=== PATIENT | male | born 1945 | race Caucasian/White ===

== ENCOUNTER 2018-01-18 18:25 | Emergency (ER) | payer MEDICARE ==
[2018-01-18] MEDS ORDERED: TYLENOL 325 MG PO STA (19:17)
[2018-01-18] MEDS ORDERED: TYLENOL 325 MG ONE (19:22)
--- NOTE | 2018-01-18 19:22 | ERPHSYRPT ---
- History of Present Illness Time Seen by Provider: 01/18/18 19:07 Source: patient Exam Limitations: no limitations Patient Subjective Stated Complaint: Painful urination Triage Nursing Assessment: Patient ambulates in ER. Patient complains of burning when urinating since yesterday. Patient denies urgency or frequency. Patient denies back/ abdominal pain. Urine noted to be cloudy with sediment. Patient states he only has pain 7/10 when urinating. Physician History: 72 y/o male with history of DM Type 2 comes to the ER with complaints of burning with urination for the past 2 days. Pt arrives with a fever of 101 and tachycardic at 103. Pt did have an episode of chills last night. Pt has been having blood glucose in the 100-120 range. Pt denies any abdominal pain, back pain, nausea, vomiting, hematuria or polyuria. Timing/Duration: yesterday Activites at Onset: none Quality: burning Onset Location: urethral Pain Radiation: none Severity of Pain-Max: none Severity of Pain-Current: none Modifying Factors: Improves With: nothing Associated Symptoms: fever, chills, dysuria Prior abdominal problems: none Allergies/Adverse Reactions: adhesive Allergy (Verified 01/18/18 18:51) Home Medications: Alprazolam 0.5 mg [xanAX 0.5 MG] HS 11/02/11 [History] Aspirin EC 81 mg [Ecotrin 81 mg] DAILY 11/02/11 [History] Multivitamin DAILY 11/02/11 [History] Sertraline HCl [Zoloft] DAILY 11/02/11 [History] Hx Tetanus, Diphtheria Vaccination/Date Given: Yes Hx Influenza Vaccination/Date Given: Yes Hx Pneumococcal Vaccination/Date Given: Yes Immunizations Up to Date: Yes - Past Medical History Pertinent Past Medical History: Yes ENT History: No Pertinent History Cardiac History: No Pertinent History Respiratory History: No Pertinent History Endocrine Medical History: No Pertinent History Musculoskeletal History: No Pertinent History GI Medical History: No Pertinent History History: No Pertinent History Psycho-Social History: Anxiety, Depression Male Reproductive Disorders: No Pertinent History Other Medical History: KIDNEY STONE - Past Surgical History Past Surgical History: Yes Neuro Surgical History: No Pertinent History Cardiac: No Pertinent History Respiratory: No Pertinent History Gastrointestinal: No Pertinent History Genitourinary: Other Musculoskeletal: No Pertinent History Male Surgical History: No Pertinent History Other Surgical History: CYSTOSCOPY FOR KIDNEY STONE - Social History Smoking Status: Never smoker Exposure to second hand smoke: No Drug Use: none Patient Lives Alone: No - Review of Systems Constitutional: Fever, Chills Eyes: No Symptoms Ears, Nose, & Throat: No Symptoms Respiratory: No Cough, No Dyspnea Cardiac: No Chest Pain, No Edema, No Syncope Abdominal/Gastrointestinal: No Abdominal Pain, No Nausea, No Vomiting, No Diarrhea Genitourinary Symptoms: Dysuria, No Frequency, No Hematuria, No Hesitancy, No Incontinence, No Urgency, No Urinary Retention, No Flank Pain, No Testicle Pain Musculoskeletal: No Back Pain, No Neck Pain Skin: No Rash Neurological: No Dizziness, No Focal Weakness, No Sensory Changes Psychological: No Symptoms Endocrine: No Symptoms All Other Systems: Reviewed and Negative - Nursing Vital Signs Nursing Vital Signs: Initial Vital Signs Temperature 101.2 F 01/18/18 18:41 Pulse Rate 100 H 01/18/18 18:41 Respiratory Rate 18 01/18/18 18:41 Blood Pressure 145/72 01/18/18 18:41 O2 Sat by Pulse Oximetry 94 L 01/18/18 18:41 Pain Scale Pain Intensity 7 - Physical Exam General Appearance: no apparent distress, alert Eye Exam: PERRL/EOMI Ears, Nose, Throat Exam: pharynx normal, moist mucous membranes Neck Exam: normal inspection, supple Respiratory Exam: normal breath sounds, lungs clear Cardiovascular Exam: regular rate/rhythm, tachycardia, No edema Gastrointestinal/Abdomen Exam: soft, No tenderness Back Exam: normal inspection, No CVA tenderness Extremity Exam: normal inspection, normal range of motion, No pedal edema Neurologic Exam: alert, oriented x 3, cooperative, sensation nml, No motor deficits Skin Exam: normal color, warm, dry, No rash SpO2: 94 Oxygen Delivery: Room Air - Course Nursing assessment & vital signs reviewed: Yes Ordered Tests: Active Orders 24 hr Category Date Time Status IV Insertion STAT Care 01/18/18 19:17 Active BLOOD CULTURE Stat Lab 01/18/18 20:02 Received CBC W DIFF Stat Lab 01/18/18 20:02 Completed CMP Stat Lab 01/18/18 20:02 Completed CULTURE,URINE Stat Lab 01/18/18 20:02 Received Lactic Acid Stat Lab 01/18/18 19:57 Completed UA W/ MICROSCOPIC Stat Lab 01/18/18 20:02 Completed Medication Summary Generic Name Dose Route Start Last Admin Trade Name Maurizio PRN Reason Stop Dose Admin Ceftriaxone Sodium/Dextrose 1 g in 50 mls @ 100 mls/hr 01/18/18 20:35 20:41 Rocephin 1 Gm-D5w 50 Ml Bag IV 01/18/18 21:04 100 mls/hr STAT STA Administration Discontinued Medications Generic Name Dose Route Start Last Admin Trade Name Maurizio PRN Reason Stop Dose Admin Acetaminophen 975 mg 01/18/18 19:17 01/18/18 19:22 Tylenol 325 Mg PO 01/18/18 19:18 975 mg STAT STA Administration Acetaminophen Confirm 01/18/18 19:22 Tylenol 325 Mg Administered 01/18/18 19:23 Dose 975 mg .ROUTE .STK-MED ONE Ceftriaxone Sodium/Dextrose Confirm 01/18/18 20:38 Rocephin 1 Gm-D5w 50 Ml Bag Administered 01/18/18 20:39 Dose 1 g in 50 mls @ ud IV .STK-MED ONE Lab/Rad Data: Laboratory Result Diagrams 01/18/18 20:02 01/18/18 20:02 Laboratory Results 01/18/18 01/18/18 01/18/18 Range/Units 20:02 20:02 20:02 WBC 14.5 H (4.0-10.5) K/mm3 RBC 4.59 (4.1-5.6) M/mm3 Hgb 14.7 (12.5-18.0) gm/dl Hct 43.9 (42-50) % MCV 95.6 (78-100) fl MCH 32.0 (26-32) pg MCHC 33.5 (32-36) g/dl RDW 12.8 (11.5-14.0) % Plt Count 237 (150-450) K/mm3 MPV 8.6 (6-9.5) fl Gran % 85.4 H (36.0-66.0) % Eos # (Auto) 0.25 (0-0.5) Absolute Lymphs (auto) 1.10 (1.0-4.6) Absolute Monos (auto) 0.75 (0.0-1.3) Lymphocytes % 7.6 L (24.0-44.0) % Monocytes % 5.2 (0.0-12.0) % Eosinophils % 1.7 (0.00-5.0) % Basophils % 0.1 (0.0-0.4) % Absolute Granulocytes 12.40 H (1.4-6.9) Basophils # 0.01 (0-0.4) Sodium 140 (137-145) mmol/L Potassium 4.7 (3.5-5.1) mmol/L Chloride 102 (98-107) mmol/L Carbon Dioxide 28 (22-30) mmol/L Anion Gap 15.8 H (5-15) MEQ/L BUN 24 H (9-20) mg/dL Creatinine 1.04 (0.66-1.25) mg/dL Estimated GFR > 60.0 ML/MIN Glucose 92 (74-106) mg/dL Lactic Acid (0.4-2.0) Calcium 10.1 (8.4-10.2) mg/dL Total Bilirubin 0.60 (0.2-1.3) mg/dL AST 19 (17-59) U/L ALT 19 (0-50) U/L Alkaline Phosphatase 75 (38-126) U/L Serum Total Protein 7.4 (6.3-8.2) g/dL Albumin 4.6 (3.5-5.0) g/dL Ur Collection Type VOID Urine Color YELLOW (YELLOW) Urine Appearance CLOUDY (CLEAR) Urine pH 5.0 (5-6) Ur Specific [place] 1.025 (1.005-1.025) Urine Protein TRACE (Negative) Urine Ketones NEGATIVE (NEGATIVE) Urine Blood 250 (0-5) Josafat/ul Urine Nitrite POSITIVE (NEGATIVE) Urine Bilirubin NEGATIVE (NEGATIVE) Urine Urobilinogen NORMAL (0-1) mg/dL Ur Leukocyte Esterase 2+ (NEGATIVE) Urine Microscopic RBC 5-10 (0-2) /HPF Urine Microscopic WBC 50-100 (0-5) /HPF Ur Epithelial Cells MODERATE (FEW) /HPF Urine Bacteria MANY (NEGATIVE) /HPF Urine Mucus MODERATE (NEGATIVE) /HPF Urine Culture Reflexed YES (NO) Urine Glucose NEGATIVE (NEGATIVE) mg/dL Specimen Received 01/18/18 1845 01/18/18 Range/Units 19:57 WBC (4.0-10.5) K/mm3 RBC (4.1-5.6) M/mm3 Hgb (12.5-18.0) gm/dl Hct (42-50) % MCV (78-100) fl MCH (26-32) pg MCHC (32-36) g/dl RDW (11.5-14.0) % Plt Count (150-450) K/mm3 MPV (6-9.5) fl Gran % (36.0-66.0) % Eos # (Auto) (0-0.5) Absolute Lymphs (auto) (1.0-4.6) Absolute Monos (auto) (0.0-1.3) Lymphocytes % (24.0-44.0) % Monocytes % (0.0-12.0) % Eosinophils % (0.00-5.0) % Basophils % (0.0-0.4) % Absolute Granulocytes (1.4-6.9) Basophils # (0-0.4) Sodium (137-145) mmol/L Potassium (3.5-5.1) mmol/L Chloride (98-107) mmol/L Carbon Dioxide (22-30) mmol/L Anion Gap (5-15) MEQ/L BUN (9-20) mg/dL Creatinine (0.66-1.25) mg/dL Estimated GFR ML/MIN Glucose (74-106) mg/dL Lactic Acid 1.3 (0.4-2.0) Calcium (8.4-10.2) mg/dL Total Bilirubin (0.2-1.3) mg/dL AST (17-59) U/L ALT (0-50) U/L Alkaline Phosphatase (38-126) U/L Serum Total Protein (6.3-8.2) g/dL Albumin (3.5-5.0) g/dL Ur Collection Type Urine Color (YELLOW) Urine Appearance (CLEAR) Urine pH (5-6) Ur Specific [place] (1.005-1.025) Urine Protein (Negative) Urine Ketones (NEGATIVE) Urine Blood (0-5) Josafat/ul Urine Nitrite (NEGATIVE) Urine Bilirubin (NEGATIVE) Urine Urobilinogen (0-1) mg/dL Ur Leukocyte Esterase (NEGATIVE) Urine Microscopic RBC (0-2) /HPF Urine Microscopic WBC (0-5) /HPF Ur Epithelial Cells (FEW) /HPF Urine Bacteria (NEGATIVE) /HPF Urine Mucus (NEGATIVE) /HPF Urine Culture Reflexed (NO) Urine Glucose (NEGATIVE) mg/dL Specimen Received - Progress Progress: improved Progress Note: 01/18/18 20:48 Pt has a UTI with a white count of 14,000. Pt will be given a dose of rocephin 1gram IV X 1 dose and will be sent home on 7 days of macrobid. - Departure Time of Disposition: 20:49 Departure Disposition: Home Clinical Impression: UTI (urinary tract infection) Qualifiers: Urinary tract infection type: site unspecified Hematuria presence: without hematuria Qualified Code(s): N39.0 - Urinary tract infection, site not specified Condition: Stable Critical Care Time: No Referrals: ANDRE PARKS MD [Primary Care Provider] - Instructions: Urinary Tract Infection, Adult (DC) Additional Instructions: Follow up with your primary care doctor if you continue to have burning with urination, back pain, abdominal pain, fever or chills. Prescriptions: Nitrofurantoin Monohyd/M-Cryst [Macrobid 100 mg Capsule] 100 mg PO BID #14 capsule
[2018-01-18 20:12] LABS: BASOPHIL % 0.1 % (0.0-0.4); Basophil (Absolute #) 0.01 (0-0.4); Eosinophil % 1.7 % (0.00-5.0); Eosinophil (Absolute #) 0.25 (0-0.5); Granulocytes % 85.4 % (36.0-66.0); Hematocrit 43.9 % (42-50); Hemoglobin 14.7 gm/dl (12.5-18.0); Lymphocytes % 7.6 % (24.0-44.0); Mean Cell Volume 95.6 fl (78-100); Mean Corpuscular Hgb Concent. 33.5 g/dl (32-36); Mean Platelet Volume 8.6 fl (6-9.5); Monocyte (Absolute #) 0.75 (0.0-1.3); Monocytes % 5.2 % (0.0-12.0); Platelet Count 237 K/mm3 (150-450); Red Blood Count 4.59 M/mm3 (4.1-5.6); Red Cell Distribution Width 12.8 % (11.5-14.0); White Blood Count 14.5 K/mm3 (4.0-10.5)
[2018-01-18 20:22] LABS: ALBUMIN 4.6 g/dL (3.5-5.0); ALKALINE PHOSPHATASE 75 U/L (38-126); ANION GAP 15.8 MEQ/L (5-15); BLOOD UREA NITROGEN 24 mg/dL (9-20); CHLORIDE 102 mmol/L (98-107); Calcium 10.1 mg/dL (8.4-10.2); Carbon Dioxide 28 mmol/L (22-30); Creatinine 1 1.04 mg/dL (0.66-1.25); Glucose 92 mg/dL (74-106); Potassium 4.7 mmol/L (3.5-5.1); SGOT/AST 19 U/L (17-59); SGPT/ALT 19 U/L (0-50); SODIUM 140 mmol/L (137-145); Total Protein 7.4 g/dL (6.3-8.2)
[2018-01-18 20:28] LABS: Appearance CLOUDY (CLEAR); Bilirubin NEGATIVE (NEGATIVE); Blood 250 Ery/ul (0-5); Glucose NEGATIVE (NEGATIVE); Ketones NEGATIVE (NEGATIVE); Leukocyte Esterase 2+ (NEGATIVE); Nitrite POSITIVE (NEGATIVE); Protein,Urine Dip TRACE (Negative); Specific Gravity 1.025 (1.005-1.025); Urobilinogen NORMAL mg/dL (0-1)
[2018-01-18 20:30] LABS: Mucus MODERATE /HPF (NEGATIVE); WBC 50-100 /HPF (0-5)
[2018-01-18 20:31] LABS: Bacteria MANY /HPF (NEGATIVE); Epithelial Cells MODERATE /HPF (FEW)
[2018-01-18] MEDS ORDERED: ROCEPHIN 1 Gm-D5w 50 ml Bag** 1 G/50 ML IVPB IV STA (20:35)
[2018-01-18] MEDS ORDERED: ROCEPHIN 1 Gm-D5w 50 ml Bag** 1 G/50 ML IVPB IV ONE (20:38)
[2018-01-18 21:05] VITALS: BP 124/74; PULSE 96; O2SAT 96
== END 2018-01-18 21:05 | disposition home or self-care (01) ==
LOC: ED 18:25
DX: N39.0 Urinary tract infection, site not specified (principal); Z79.899 Other long term (current) drug therapy; Z79.82 Long term (current) use of aspirin
CPT/HCPCS: 36000; 36415; 80053; 81000; 83605; 85025; 87040; 87077; 87086; 87186; 96365; 99284; J0696; A9270-GY

== ENCOUNTER 2018-06-18 08:47 | Observation (INO) | payer MEDICARE ==
[2018-06-18] MEDS ORDERED: BABY ASPIRIN 81 MG CHEW PO ONE (09:11)
--- NOTE | 2018-06-18 09:24 | ERPHSYRPT ---
- History of Present Illness Time Seen by Provider: 06/18/18 09:19 Historian: patient Exam Limitations: no limitations Patient Subjective Stated Complaint: chest pain that radiates to left jaw, neck , and down left arm Triage Nursing Assessment: Pt c/o of chest pain that radiates to his left neck, jaw, and down his left arm, pain began last week in the shoulder and doctor gave him a muscle relaxer to take at night, the pain has continued and radiated since then, no edema, denies N&V, hypertension, normal sinus, lost his dog of 13 years and he thinks it might be related to stress, doesn't appear to be in any distress Physician History: 73-year-old white male with history of anxiety, depression, high blood pressure , kidney stones, diabetes type 2. He arrives with complaint of pain in his anterior left chest radiating down his left arm off and on for a week. He describes his pain is dull not associated with movement there is no shortness of breath no nausea. He states the pain woke him up this morning at 6 AM it is not present currently 1 the pain was current it was rated at a 6 out of 10. Patient does have a history of recent shoulder pain which he has seen his family doctor for one to 2 weeks ago. Past medical history includes anxiety, depression, kidney stones, diabetes type 2. Past surgical history includes cystoscopy. Social history patient chews tobacco he denies alcohol or illicit drug use. . Timing/Duration: week(s) (one week recurred this morning at 6:00 am) Activities at Onset: rest (Woke up with pain) Quality: dullness Location: other (left anterior chest) Chest Pain Radiation: arm (left arm) Severity of Pain-Max: moderate Severity of Pain-Current: none Modifying Factors: Improves With: nothing Associated Symptoms: No nausea, No vomiting, No palpitations, No heartburn, No abdominal pain, No shortness of breath, No cough, No hurts to breathe, No diaphoresis, No chills, No fever, No fatigue, No weakness, No swelling/lump in chest, No syncope, No rash, No headache, No dizziness, No edema, No back pain Prior Chest Pain/Cardiac Workup: no prior chest pain Nitro Today/Relief: no nitro taken today Aspirin Treatment Today: 81 mg x 1 (81 mg at home), 81 mg x 3 (243 mg in the ER) Allergies/Adverse Reactions: adhesive Allergy (Verified 06/18/18 09:05) Home Medications: Alprazolam 0.5 mg [xanAX 0.5 MG] 0.5 mg PO HS 11/02/11 [History] Aspirin EC 81 mg [Ecotrin 81 mg] 81 mg PO DAILY 11/02/11 [History] Multivitamin 1 tab PO DAILY 11/02/11 [History] Sertraline HCl [Zoloft] 50 mg PO DAILY 11/02/11 [History] Clonazepam 0.5 mg [Klonopin 0.5 MG] 1 tab PO BID 06/18/18 [History] Magnesium Oxide 1 tab PO DAILY 06/18/18 [History] Tizanidine HCl 1 tab PO HS 06/18/18 [History] Hx Tetanus, Diphtheria Vaccination/Date Given: Yes Hx Influenza Vaccination/Date Given: Yes Hx Pneumococcal Vaccination/Date Given: Yes - Review of Systems Constitutional: No Fever, No Chills Eyes: No Symptoms Ears, Nose, & Throat: No Symptoms Respiratory: No Cough, No Dyspnea Cardiac: Chest Pain, No Edema, No Palpitations, No Syncope, No Orthopnea, No PND Abdominal/Gastrointestinal: No Abdominal Pain, No Nausea, No Vomiting, No Diarrhea Genitourinary Symptoms: No Dysuria Musculoskeletal: No Back Pain, No Neck Pain Skin: No Rash Neurological: No Dizziness, No Focal Weakness, No Sensory Changes Psychological: No Symptoms Endocrine: No Symptoms All Other Systems: Reviewed and Negative - Past Medical History Pertinent Past Medical History: Yes ENT History: No Pertinent History Cardiac History: Hypertension Respiratory History: No Pertinent History Endocrine Medical History: No Pertinent History Musculoskeletal History: No Pertinent History GI Medical History: No Pertinent History History: No Pertinent History Psycho-Social History: Anxiety, Depression Male Reproductive Disorders: No Pertinent History Other Medical History: KIDNEY STONE - Past Surgical History Past Surgical History: Yes Neuro Surgical History: No Pertinent History Cardiac: No Pertinent History Respiratory: No Pertinent History Gastrointestinal: No Pertinent History Genitourinary: Other Musculoskeletal: No Pertinent History Male Surgical History: No Pertinent History Other Surgical History: CYSTOSCOPY FOR KIDNEY STONE - Social History Smoking Status: Never smoker Exposure to second hand smoke: Yes Drug Use: none Patient Lives Alone: Yes - Nursing Vital Signs Nursing Vital Signs: Initial Vital Signs Temperature 97.8 F 06/18/18 08:48 Pulse Rate 92 H 06/18/18 08:48 Blood Pressure 160/85 06/18/18 08:48 O2 Sat by Pulse Oximetry 98 06/18/18 08:48 Pain Scale Pain Intensity 6 - Physical Exam General Appearance: no apparent distress, alert Eye Exam: PERRL/EOMI, eyes nml inspection Ears, Nose, Throat Exam: normal ENT inspection, moist mucous membranes Neck Exam: normal inspection, non-tender, supple, full range of motion Respiratory Exam: normal breath sounds, lungs clear, No respiratory distress Cardiovascular Exam: regular rate/rhythm, normal heart sounds, normal peripheral pulses, murmur, No capillary refill <2 sec Gastrointestinal/Abdomen Exam: soft, No tenderness, No mass Back Exam: normal inspection, No CVA tenderness, No vertebral tenderness Extremity Exam: normal inspection, normal range of motion Neurologic Exam: alert, oriented x 3, cooperative, corporate financial analyst II-XII nml as tested, normal mood/affect, sensation nml, No motor deficits Skin Exam: normal color, warm, dry SpO2 Interpretation: normal (95%) SpO2: 95 - Course Nursing assessment & vital signs reviewed: Yes EKG Interpreted by Me: RATE (98 bpm), Sinus Rhythm, NORMAL AXIS, Right Bundle Branch Block, Other (EKG: Sinus rhythm, 98 bpm, complete right bundle block, normal axis. Right bundle branch block new as compared to July 27, 2012, no acute ST or T wave changes noted) - Radiology Exams Chest X-ray Interpretation: Discussed w/ radiologist (chest x-ray: Stable nonacute chest with chronic features.) Ordered Tests: Active Orders 24 hr Category Date Time Status Customer Experience Professional STAT Care 06/18/18 09:13 Active EKG-ER Only STAT Care 06/18/18 09:11 Active IV Insertion STAT Care 06/18/18 09:11 Active Pulse Oximetry (ED) STAT Care 06/18/18 09:11 Active CHEST 1 VIEW (PORTABLE) Stat Exams 06/18/18 09:13 Completed CBC W DIFF Stat Lab 06/18/18 09:30 Completed CMP Stat Lab 06/18/18 09:30 Completed D-DIMER QUANTITATION Stat Lab 06/18/18 09:30 Completed TROPONIN Q3H Lab 06/18/18 09:30 Completed TROPONIN Q3H Lab 06/18/18 12:15 Ordered TROPONIN Q3H Lab 06/18/18 15:15 Ordered TROPONIN Q3H Lab 06/18/18 18:15 Ordered TROPONIN Q3H Lab 06/18/18 21:15 Ordered Transfer Order Routine Transfer 06/18/18 Ordered Medication Summary Discontinued Medications Generic Name Dose Route Start Last Admin Trade Name Erlinq PRN Reason Stop Dose Admin Aspirin 243 mg 06/18/18 09:11 06/18/18 09:20 Baby Aspirin 81 Mg Chew PO 06/18/18 09:12 243 mg STAT ONE Administration Lab/Rad Data: Laboratory Result Diagrams 06/18/18 09:30 06/18/18 09:30 Laboratory Results 06/18/18 06/18/18 06/18/18 Range/Units 09:30 09:30 09:30 WBC (4.0-10.5) K/mm3 RBC (4.1-5.6) M/mm3 Hgb (12.5-18.0) gm/dl Hct (42-50) % MCV (78-100) fl MCH (26-32) pg MCHC (32-36) g/dl RDW (11.5-14.0) % Plt Count (150-450) K/mm3 MPV (6-9.5) fl Gran % (36.0-66.0) % Eos # (Auto) (0-0.5) Absolute Lymphs (auto) (1.0-4.6) Absolute Monos (auto) (0.0-1.3) Lymphocytes % (24.0-44.0) % Monocytes % (0.0-12.0) % Eosinophils % (0.00-5.0) % Basophils % (0.0-0.4) % Absolute Granulocytes (1.4-6.9) Basophils # (0-0.4) D-Dimer 280 (215-500) ng/mL Sodium 142 (137-145) mmol/L Potassium 4.7 (3.5-5.1) mmol/L Chloride 104 (98-107) mmol/L Carbon Dioxide 28 (22-30) mmol/L Anion Gap 15.3 H (5-15) MEQ/L BUN 23 H (9-20) mg/dL Creatinine 0.97 (0.66-1.25) mg/dL Estimated GFR > 60.0 ML/MIN Glucose 139 H (74-106) mg/dL Calcium 9.2 (8.4-10.2) mg/dL Total Bilirubin 0.80 (0.2-1.3) mg/dL AST 17 (17-59) U/L ALT 19 (0-50) U/L Alkaline Phosphatase 60 (38-126) U/L Troponin I < 0.012 (0.000-0.034) ng/mL Serum Total Protein 7.0 (6.3-8.2) g/dL Albumin 4.3 (3.5-5.0) g/dL 06/18/18 Range/Units 09:30 WBC 6.8 (4.0-10.5) K/mm3 RBC 4.62 (4.1-5.6) M/mm3 Hgb 14.7 (12.5-18.0) gm/dl Hct 45.0 (42-50) % MCV 97.4 (78-100) fl MCH 31.8 (26-32) pg MCHC 32.7 (32-36) g/dl RDW 12.9 (11.5-14.0) % Plt Count 219 (150-450) K/mm3 MPV 8.7 (6-9.5) fl Gran % 51.8 (36.0-66.0) % Eos # (Auto) 0.36 (0-0.5) Absolute Lymphs (auto) 2.24 (1.0-4.6) Absolute Monos (auto) 0.64 (0.0-1.3) Lymphocytes % 33.1 (24.0-44.0) % Monocytes % 9.5 (0.0-12.0) % Eosinophils % 5.3 H (0.00-5.0) % Basophils % 0.3 (0.0-0.4) % Absolute Granulocytes 3.51 (1.4-6.9) Basophils # 0.02 (0-0.4) D-Dimer (215-500) ng/mL Sodium (137-145) mmol/L Potassium (3.5-5.1) mmol/L Chloride (98-107) mmol/L Carbon Dioxide (22-30) mmol/L Anion Gap (5-15) MEQ/L BUN (9-20) mg/dL Creatinine (0.66-1.25) mg/dL Estimated GFR ML/MIN Glucose (74-106) mg/dL Calcium (8.4-10.2) mg/dL Total Bilirubin (0.2-1.3) mg/dL AST (17-59) U/L ALT (0-50) U/L Alkaline Phosphatase (38-126) U/L Troponin I (0.000-0.034) ng/mL Serum Total Protein (6.3-8.2) g/dL Albumin (3.5-5.0) g/dL - Progress Progress: improved Air Movement: fair Progress Note: 06/18/18 10:15 73-year-old white male with history of anxiety, depression, diabetes type 2 Arrives with complaint of pain in his left anterior chest radiating to his left arm off and on for a week. He had been seen previously approximately one to 2 weeks ago for left shoulder pain by his family physician. He states his pain is dull intermittent. He states this woke him up from sleep this morning. Patient apparently took 81 mg of aspirin. His initial pain was 6 out of 10 currently pain is a 0 out of 10. Patient with stable vital signs normal chemistry normal CBC normal d-dimer normal troponin patient's chest x-ray no acute disease processes noted. Patient's EKG is remarkable for sinus rhythm 98 bpm normal axis, complete right bundle branch block which was new as compared to July 27, 2012 there are no acute ST or T wave changes noted. Patient is given 243 mg of aspirin in the emergency room he is stable at this time case is discussed with Dr. Parks. Will place patient on observation, telemetry will continue serial enzymes. - Departure Time of Disposition: 10:17 Departure Disposition: Observation Clinical Impression: Chest pain Qualifiers: Chest pain type: unspecified Qualified Code(s): R07.9 - Chest pain, unspecified Condition: Fair Critical Care Time: No Referrals: ANDRE PARKS MD [Primary Care Provider] -
--- NOTE | 2018-06-18 09:34 | XRAY ---
Indication: Chest pain. Comparison: July 27, 2012. Portable chest again demonstrates normal heart and lungs with incidental right lower lung calcified granuloma. Bony thorax intact again with mild degenerative changes. No new/acute findings. Impression: Stable nonacute chest with chronic features.
[2018-06-18 09:35] LABS: BASOPHIL % 0.3 % (0.0-0.4); Basophil (Absolute #) 0.02 (0-0.4); Eosinophil % 5.3 % (0.00-5.0); Eosinophil (Absolute #) 0.36 (0-0.5); Granulocyte Absolute (ANC) 3.51 (1.4-6.9); Granulocytes % 51.8 % (36.0-66.0); Hemoglobin 14.7 gm/dl (12.5-18.0); Lymphocyte (Absolute #) 2.24 (1.0-4.6); Lymphocytes % 33.1 % (24.0-44.0); Mean Cell Volume 97.4 fl (78-100); Mean Corpuscular Hemoglobin 31.8 pg (26-32); Mean Corpuscular Hgb Concent. 32.7 g/dl (32-36); Mean Platelet Volume 8.7 fl (6-9.5); Monocyte (Absolute #) 0.64 (0.0-1.3); Monocytes % 9.5 % (0.0-12.0); Platelet Count 219 K/mm3 (150-450); Red Blood Count 4.62 M/mm3 (4.1-5.6); Red Cell Distribution Width 12.9 % (11.5-14.0); White Blood Count 6.8 K/mm3 (4.0-10.5)
[2018-06-18 09:45] LABS: ALBUMIN 4.3 g/dL (3.5-5.0); ALKALINE PHOSPHATASE 60 U/L (38-126); ANION GAP 15.3 MEQ/L (5-15); BLOOD UREA NITROGEN 23 mg/dL (9-20); CHLORIDE 104 mmol/L (98-107); Calcium 9.2 mg/dL (8.4-10.2); Carbon Dioxide 28 mmol/L (22-30); Creatinine 1 0.97 mg/dL (0.66-1.25); Glucose 139 mg/dL (74-106); Potassium 4.7 mmol/L (3.5-5.1); SGOT/AST 17 U/L (17-59); SGPT/ALT 19 U/L (0-50); SODIUM 142 mmol/L (137-145)
[2018-06-18] MEDS ORDERED: Coreg 3.125 MG PO SCH (13:00)
[2018-06-18] MEDS ORDERED: THERAGRAN MULTIVITAMIN PO SCH (13:00)
[2018-06-18] MEDS ORDERED: MAG-OX 400 PO SCH (13:00)
[2018-06-18] MEDS: Klonopin 0.5 MG PO SCH (21:37)
[2018-06-18] MEDS ORDERED: Zanaflex 4 MG PO SCH (22:00)
[2018-06-18] MEDS ORDERED: xanAX 0.5 MG PO SCH (22:00)
[2018-06-19 05:55] LABS: BASOPHIL % 0.1 % (0.0-0.4); Basophil (Absolute #) 0.01 (0-0.4); Eosinophil % 5.6 % (0.00-5.0); Eosinophil (Absolute #) 0.44 (0-0.5); Granulocyte Absolute (ANC) 4.11 (1.4-6.9); Granulocytes % 52.7 % (36.0-66.0); Hemoglobin 13.7 gm/dl (12.5-18.0); Lymphocytes % 32.1 % (24.0-44.0); Mean Corpuscular Hemoglobin 31.6 pg (26-32); Mean Corpuscular Hgb Concent. 32.6 g/dl (32-36); Mean Platelet Volume 8.7 fl (6-9.5); Monocyte (Absolute #) 0.74 (0.0-1.3); Monocytes % 9.5 % (0.0-12.0); Platelet Count 205 K/mm3 (150-450); Red Blood Count 4.33 M/mm3 (4.1-5.6); Red Cell Distribution Width 12.9 % (11.5-14.0); White Blood Count 7.8 K/mm3 (4.0-10.5)
[2018-06-19 06:20] LABS: ALBUMIN 3.8 g/dL (3.5-5.0); ALKALINE PHOSPHATASE 50 U/L (38-126); ANION GAP 11.9 MEQ/L (5-15); BLOOD UREA NITROGEN 19 mg/dL (9-20); CHLORIDE 104 mmol/L (98-107); Calcium 9.4 mg/dL (8.4-10.2); Carbon Dioxide 28 mmol/L (22-30); Creatinine 1 0.89 mg/dL (0.66-1.25); Glucose 104 mg/dL (74-106); Potassium 4.4 mmol/L (3.5-5.1); SGOT/AST 16 U/L (17-59); SGPT/ALT 19 U/L (0-50); SODIUM 140 mmol/L (137-145); Total Protein 6.3 g/dL (6.3-8.2)
[2018-06-19] MEDS: Klonopin 0.5 MG PO SCH (09:33)
[2018-06-19] MEDS ORDERED: ZOLOFT 50 MG TABLET PO SCH (10:00)
[2018-06-19] MEDS ORDERED: ECOTRIN 81 MG PO SCH (10:00)
[2018-06-19] MEDS ORDERED: Ecotrin 325 MG PO SCH (10:00)
[2018-06-19] MEDS ORDERED: MULTIVITAMIN PO SCH (12:00)
[2018-06-19 12:01] VITALS: BP 143/73; PULSE 76; O2SAT 95
--- NOTE | 2018-06-19 12:29 | PCM.SSS ---
History of Present Illness - Chief Complaint Chief Complaint: Chest pain for 1 day History of Present Illness: is a 73 year old male.Pt c/o of chest pain that radiates to his left neck, jaw, and down his left arm, pain began last week in the shoulder and doctor gave him a muscle relaxer to take at night, the pain has continued and radiated since then, no edema, denies N&V, hypertension, normal sinus, lost his dog of 13 years and he thinks it might be related to stress, doesn't appear to be in any distress - Review of Systems Constitutional: No Fever, No Chills Eyes: No Symptoms Ears, Nose, & Throat: No Symptoms Respiratory: No Cough, No Short Of Breath Cardiac: Chest Pain, No Edema, No Syncope Abdominal/Gastrointestinal: No Abdominal Pain, No Nausea, No Vomiting, No Diarrhea Genitourinary Symptoms: No Dysuria Musculoskeletal: No Back Pain, No Neck Pain Skin: No Rash Neurological: No Dizziness, No Focal Weakness, No Sensory Changes Psychological: No Symptoms Endocrine: No Symptoms Hematologic/Lymphatic: No Symptoms Immunological/Allergic: No Symptoms Medications & Allergies Home Medications: Home Medication List Alprazolam 0.5 mg [xanAX 0.5 MG] 0.5 mg PO HS 11/02/11 [History Confirmed 10/29] Aspirin EC 81 mg [Ecotrin 81 mg] 81 mg PO DAILY 11/02/11 [History Confirmed 06/18/18] Multivitamin 1 tab PO LUNCH 11/02/11 [History Confirmed 06/18/18] Sertraline HCl [Zoloft] 50 mg PO DAILY 11/02/11 [History Confirmed 06/18/18] Carvedilol 3.125 mg [Coreg 3.125 MG] 3.125 mg PO LUNCH 06/18/18 [History Confirmed 06/18/18] Clonazepam 0.5 mg [Klonopin 0.5 MG] 1 tab PO BID 06/18/18 [History Confirmed 06/18/18] Magnesium Oxide 1 tab PO LUNCH 06/18/18 [History Confirmed 06/18/18] Tizanidine HCl 1 tab PO HS 06/18/18 [History Confirmed 06/18/18] Allergies/Adverse Reactions: Allergies Allergy/AdvReac Type Severity Reaction Status Date / Time adhesive Allergy Verified 06/18/18 09:05 - Past Medical History Past Medical History: Yes Neurological History: No Pertinent History ENT History: No Pertinent History Cardiac History: Hypertension Respiratory History: No Pertinent History Endocrine Medical History: No Pertinent History, Diabetes Type II Musculoskelatal History: No Pertinent History GI Medical History: No Pertinent History History: No Pertinent History Pyscho-Social History: Anxiety, Depression Male Reproductive Disorders: No Pertinent History Comment: KIDNEY STONE - Past Surgical History Past Surgical History: Yes Neuro Surgical History: No Pertinent History Cardiac History: Cardiac Catheterization Respiratory Surgery: No Pertinent History GI Surgical History: No Pertinent History Genitourinary Surgical Hx: No Pertinent History Musculskeletal Surgical Hx: No Pertinent History Male Surgical History: No Pertinent History Other Surgical History: hernia repair at age 11. undescended testicle repair at age 4 - Social History Smoking Status: Never smoker Exposure to second hand smoke: Yes Alcohol: None Drug Use: none - Physical Exam Vital Signs: Vital Signs - 24 hr Temp Pulse Resp BP Pulse Ox 06/19/18 12:00 98.6 F 76 17 143/73 95 06/19/18 10:03 94 L 06/19/18 08:00 98.4 F 70 18 119/63 93 L 06/19/18 04:25 97.5 F 74 17 125/57 97 06/18/18 23:32 98.1 F 82 16 127/66 98 06/18/18 19:39 98.3 F 86 17 135/72 97 06/18/18 16:12 98.3 F 85 20 127/75 96 General Appearance: no apparent distress, alert Neurologic Exam: alert, oriented x 3, cooperative, normal mood/affect, nml cerebellar function, nml station & gait, sensation nml, No motor deficits Eye Exam: PERRL/EOMI, eyes nml inspection Ears, Nose, Throat Exam: normal ENT inspection, TMs normal, pharynx normal, moist mucous membranes Neck Exam: normal inspection, non-tender, supple, full range of motion Respiratory Exam: normal breath sounds, lungs clear, No respiratory distress Cardiovascular Exam: regular rate/rhythm, normal heart sounds, normal peripheral pulses Gastrointestinal/Abdomen Exam: soft, normal bowel sounds, No tenderness, No mass Back Exam: normal inspection, normal range of motion, No CVA tenderness, No vertebral tenderness Extremity Exam: normal inspection, normal range of motion, pelvis stable Skin Exam: normal color, warm, dry, No rash Lymphatic Exam: No adenopathy Results - Labs Lab/Micro Results: Accuchecks Date 06/19/18 Date 06/19/18 Date 06/18/18 Time 11:30 Time 07:30 Time 16:07 Accucheck Value: 94 Accucheck Value: 104 Accucheck Value: 140 Accucheck Value: 144 Lab Results-Last 24 Hours 06/18/18 06/18/18 06/18/18 Range/Units 12:10 15:35 18:35 WBC (4.0-10.5) K/mm3 RBC (4.1-5.6) M/mm3 Hgb (12.5-18.0) gm/dl Hct (42-50) % MCV (78-100) fl MCH (26-32) pg MCHC (32-36) g/dl RDW (11.5-14.0) % Plt Count (150-450) K/mm3 MPV (6-9.5) fl Gran % (36.0-66.0) % Eos # (Auto) (0-0.5) Absolute Lymphs (auto) (1.0-4.6) Absolute Monos (auto) (0.0-1.3) Lymphocytes % (24.0-44.0) % Monocytes % (0.0-12.0) % Eosinophils % (0.00-5.0) % Basophils % (0.0-0.4) % Absolute Granulocytes (1.4-6.9) Basophils # (0-0.4) Sodium (137-145) mmol/L Potassium (3.5-5.1) mmol/L Chloride (98-107) mmol/L Carbon Dioxide (22-30) mmol/L Anion Gap (5-15) MEQ/L BUN (9-20) mg/dL Creatinine (0.66-1.25) mg/dL Estimated GFR ML/MIN Glucose (74-106) mg/dL Calcium (8.4-10.2) mg/dL Total Bilirubin (0.2-1.3) mg/dL AST (17-59) U/L ALT (0-50) U/L Alkaline Phosphatase (38-126) U/L Troponin I < 0.012 < 0.012 < 0.012 (0.000-0.034) ng/mL Serum Total Protein (6.3-8.2) g/dL Albumin (3.5-5.0) g/dL 06/18/18 06/19/18 06/19/18 Range/Units 21:30 05:30 05:30 WBC 7.8 (4.0-10.5) K/mm3 RBC 4.33 (4.1-5.6) M/mm3 Hgb 13.7 (12.5-18.0) gm/dl Hct 42.0 (42-50) % MCV 97.0 (78-100) fl MCH 31.6 (26-32) pg MCHC 32.6 (32-36) g/dl RDW 12.9 (11.5-14.0) % Plt Count 205 (150-450) K/mm3 MPV 8.7 (6-9.5) fl Gran % 52.7 (36.0-66.0) % Eos # (Auto) 0.44 (0-0.5) Absolute Lymphs (auto) 2.50 (1.0-4.6) Absolute Monos (auto) 0.74 (0.0-1.3) Lymphocytes % 32.1 (24.0-44.0) % Monocytes % 9.5 (0.0-12.0) % Eosinophils % 5.6 H (0.00-5.0) % Basophils % 0.1 (0.0-0.4) % Absolute Granulocytes 4.11 (1.4-6.9) Basophils # 0.01 (0-0.4) Sodium 140 (137-145) mmol/L Potassium 4.4 (3.5-5.1) mmol/L Chloride 104 (98-107) mmol/L Carbon Dioxide 28 (22-30) mmol/L Anion Gap 11.9 (5-15) MEQ/L BUN 19 (9-20) mg/dL Creatinine 0.89 (0.66-1.25) mg/dL Estimated GFR > 60.0 ML/MIN Glucose 104 (74-106) mg/dL Calcium 9.4 (8.4-10.2) mg/dL Total Bilirubin 0.70 (0.2-1.3) mg/dL AST 16 L (17-59) U/L ALT 19 (0-50) U/L Alkaline Phosphatase 50 (38-126) U/L Troponin I < 0.012 (0.000-0.034) ng/mL Serum Total Protein 6.3 (6.3-8.2) g/dL Albumin 3.8 (3.5-5.0) g/dL Accuchecks Date 06/19/18 Date 06/19/18 Date 06/18/18 Time 11:30 Time 07:30 Time 16:07 Accucheck Value: 94 Accucheck Value: 104 Accucheck Value: 140 Accucheck Value: 144 - Radiology Impressions Radiology Exams & Impressions: Radiology Procedures Category Date Time Status CHEST 1 VIEW (PORTABLE) Stat Exams 06/18/18 09:13 Completed Assessment/Plan (1) Chest pain Current Visit: Yes Status: Acute Qualifiers: Chest pain type: unspecified Qualified Code(s): R07.9 - Chest pain, unspecified Assessment & Plan: [place] ruled out. Patient is chest pain free. All labs are negative Code(s): R07.9 - CHEST PAIN, UNSPECIFIED Hospital Summary - Hospital Course Hospital Course: Last Vital Signs Temp 98.6 F 06/19/18 12:00 Pulse 76 06/19/18 12:00 Resp 17 06/19/18 12:00 BP 143/73 06/19/18 12:00 Pulse Ox 95 06/19/18 12:00 Allergies adhesive Allergy (Verified 06/18/18 09:05) Active Medications Alprazolam (Xanax 0.5 Mg) 0.5 mg PO HS SHEN Stop: 07/18/18 21:59 Last Admin: 06/18/18 21:37 Dose: 0.5 mg Aspirin (Ecotrin 81 Mg) 81 mg PO DAILY SHEN Stop: 07/19/18 09:59 Last Admin: 06/19/18 09:33 Dose: 81 mg Carvedilol (Coreg 3.125 Mg) 3.125 mg PO LUNCH SHEN Stop: 07/18/18 12:59 Last Admin: 06/18/18 12:55 Dose: 3.125 mg Clonazepam (Klonopin 0.5 Mg) 0.5 mg PO BID SHEN Stop: 07/18/18 21:59 Last Admin: 06/19/18 09:33 Dose: 0.5 mg Magnesium Oxide (Mag-Ox 400) 400 mg PO LUNCH SHEN Stop: 07/18/18 12:59 Last Admin: 06/18/18 12:55 Dose: 400 mg Multivitamins Therapeutic (Theragran Multivitamin) 1 tab PO LUNCH SHEN Stop: 07/18/18 12:59 Last Admin: 06/18/18 12:55 Dose: 1 tab Sertraline HCl (Zoloft 50 Mg Tablet) 50 mg PO DAILY SHEN Stop: 07/19/18 09:59 Last Admin: 06/19/18 09:33 Dose: 50 mg Tizanidine HCl (Zanaflex 4 Mg) 4 mg PO HS [facility] Stop: 07/18/18 21:59 Last Admin: 06/18/18 21:37 Dose: 4 mg Intake & Output 06/19/18 06/20/18 11:59 11:59 Intake Total 1880 Output Total 2300 Balance -420 Weight 73.8 kg Orders 06/18/18 13:00 Carvedilol 3.125 mg [Coreg 3.125 MG] 3.125 mg PO LUNCH Magnesium Oxide 400 mg [Mag-Ox 400] 400 mg PO LUNCH Multivitamins,Therapeutic Tab* [Theragran Multivitamin] 1 tab PO LUNCH 06/18/18 22:00 Alprazolam 0.5 mg [xanAX 0.5 MG] 0.5 mg PO HS Clonazepam 0.5 mg [Klonopin 0.5 MG] 0.5 mg PO BID Tizanidine HCl 4 mg [Zanaflex 4 MG] 4 mg PO HS 06/19/18 10:00 Aspirin EC 81 mg [Ecotrin 81 mg] 81 mg PO DAILY Sertraline HCl 50 mg [Zoloft 50 mg Tablet] 50 mg PO DAILY Lab Tests 06/18/18 06/18/18 06/18/18 12:10 15:35 18:35 WBC RBC Hgb Hct MCV MCH MCHC RDW Plt Count MPV Gran % Eos # (Auto) Absolute Lymphs (auto) Absolute Monos (auto) Lymphocytes % Monocytes % Eosinophils % Basophils % Absolute Granulocytes Basophils # Sodium Potassium Chloride Carbon Dioxide Anion Gap BUN Creatinine Estimated GFR Glucose Calcium Total Bilirubin AST ALT Alkaline Phosphatase Troponin I < 0.012 < 0.012 < 0.012 Serum Total Protein Albumin 06/18/18 06/19/18 06/19/18 21:30 05:30 05:30 WBC 7.8 RBC 4.33 Hgb 13.7 Hct 42.0 MCV 97.0 MCH 31.6 MCHC 32.6 RDW 12.9 Plt Count 205 MPV 8.7 Gran % 52.7 Eos # (Auto) 0.44 Absolute Lymphs (auto) 2.50 Absolute Monos (auto) 0.74 Lymphocytes % 32.1 Monocytes % 9.5 Eosinophils % 5.6 H Basophils % 0.1 Absolute Granulocytes 4.11 Basophils # 0.01 Sodium 140 Potassium 4.4 Chloride 104 Carbon Dioxide 28 Anion Gap 11.9 BUN 19 Creatinine 0.89 Estimated GFR > 60.0 Glucose 104 Calcium 9.4 Total Bilirubin 0.70 AST 16 L ALT 19 Alkaline Phosphatase 50 Troponin I < 0.012 Serum Total Protein 6.3 Albumin 3.8 - Vitals & Intake/Output Vital Signs: Vital Signs Temperature 98.6 F 06/19/18 12:00 Pulse Rate 76 06/19/18 12:00 Respiratory Rate 17 06/19/18 12:00 Blood Pressure 143/73 06/19/18 12:00 O2 Sat by Pulse Oximetry 95 06/19/18 12:00 Intake & Output: Intake & Output 06/17/18 06/18/18 06/19/18 06/20/18 11:59 11:59 11:59 11:59 Intake Total 1880 Output Total 2300 Balance -420 Weight 74.7 kg 73.8 kg - Lab Result Diagrams: 06/19/18 05:30 06/19/18 05:30 Lab Results-Last 24 Hrs: Accuchecks Date 06/19/18 Date 06/19/18 Date 06/18/18 Time 11:30 Time 07:30 Time 16:07 Accucheck Value: 94 Accucheck Value: 104 Accucheck Value: 140 Accucheck Value: 144 Lab Results-Last 24 Hours 06/18/18 06/18/18 06/18/18 Range/Units 12:10 15:35 18:35 WBC (4.0-10.5) K/mm3 RBC (4.1-5.6) M/mm3 Hgb (12.5-18.0) gm/dl Hct (42-50) % MCV (78-100) fl MCH (26-32) pg MCHC (32-36) g/dl RDW (11.5-14.0) % Plt Count (150-450) K/mm3 MPV (6-9.5) fl Gran % (36.0-66.0) % Eos # (Auto) (0-0.5) Absolute Lymphs (auto) (1.0-4.6) Absolute Monos (auto) (0.0-1.3) Lymphocytes % (24.0-44.0) % Monocytes % (0.0-12.0) % Eosinophils % (0.00-5.0) % Basophils % (0.0-0.4) % Absolute Granulocytes (1.4-6.9) Basophils # (0-0.4) Sodium (137-145) mmol/L Potassium (3.5-5.1) mmol/L Chloride (98-107) mmol/L Carbon Dioxide (22-30) mmol/L Anion Gap (5-15) MEQ/L BUN (9-20) mg/dL Creatinine (0.66-1.25) mg/dL Estimated GFR ML/MIN Glucose (74-106) mg/dL Calcium (8.4-10.2) mg/dL Total Bilirubin (0.2-1.3) mg/dL AST (17-59) U/L ALT (0-50) U/L Alkaline Phosphatase (38-126) U/L Troponin I < 0.012 < 0.012 < 0.012 (0.000-0.034) ng/mL Serum Total Protein (6.3-8.2) g/dL Albumin (3.5-5.0) g/dL 06/18/18 06/19/18 06/19/18 Range/Units 21:30 05:30 05:30 WBC 7.8 (4.0-10.5) K/mm3 RBC 4.33 (4.1-5.6) M/mm3 Hgb 13.7 (12.5-18.0) gm/dl Hct 42.0 (42-50) % MCV 97.0 (78-100) fl MCH 31.6 (26-32) pg MCHC 32.6 (32-36) g/dl RDW 12.9 (11.5-14.0) % Plt Count 205 (150-450) K/mm3 MPV 8.7 (6-9.5) fl Gran % 52.7 (36.0-66.0) % Eos # (Auto) 0.44 (0-0.5) Absolute Lymphs (auto) 2.50 (1.0-4.6) Absolute Monos (auto) 0.74 (0.0-1.3) Lymphocytes % 32.1 (24.0-44.0) % Monocytes % 9.5 (0.0-12.0) % Eosinophils % 5.6 H (0.00-5.0) % Basophils % 0.1 (0.0-0.4) % Absolute Granulocytes 4.11 (1.4-6.9) Basophils # 0.01 (0-0.4) Sodium 140 (137-145) mmol/L Potassium 4.4 (3.5-5.1) mmol/L Chloride 104 (98-107) mmol/L Carbon Dioxide 28 (22-30) mmol/L Anion Gap 11.9 (5-15) MEQ/L BUN 19 (9-20) mg/dL Creatinine 0.89 (0.66-1.25) mg/dL Estimated GFR > 60.0 ML/MIN Glucose 104 (74-106) mg/dL Calcium 9.4 (8.4-10.2) mg/dL Total Bilirubin 0.70 (0.2-1.3) mg/dL AST 16 L (17-59) U/L ALT 19 (0-50) U/L Alkaline Phosphatase 50 (38-126) U/L Troponin I < 0.012 (0.000-0.034) ng/mL Serum Total Protein 6.3 (6.3-8.2) g/dL Albumin 3.8 (3.5-5.0) g/dL Micro Results-Entire Visit: Accuchecks Date 06/19/18 Date 06/19/18 Date 06/18/18 Time 11:30 Time 07:30 Time 16:07 Accucheck Value: 94 Accucheck Value: 104 Accucheck Value: 140 Accucheck Value: 144 - Radiology Exams Ordered Rad Exams-Entire Visit: Radiology Procedures Category Date Time Status CHEST 1 VIEW (PORTABLE) Stat Exams 06/18/18 09:13 Completed - Discharge Discharge Date: 06/19/18 Disposition: Home, Self-Care Condition: Fair Prescriptions: No Action Multivitamin 1 tab PO LUNCH Aspirin EC 81 mg [Ecotrin 81 mg] 81 mg PO DAILY Sertraline HCl [Zoloft] 50 mg PO DAILY Alprazolam 0.5 mg [xanAX 0.5 MG] 0.5 mg PO HS Magnesium Oxide 1 tab PO LUNCH Clonazepam 0.5 mg [Klonopin 0.5 MG] 1 tab PO BID Tizanidine HCl 1 tab PO HS Carvedilol 3.125 mg [Coreg 3.125 MG] 3.125 mg PO LUNCH Instructions: Angina Follow up with: ANDRE PARKS MD [Primary Care Provider] - 06/26/18 2:00 pm
== END 2018-06-19 13:02 | disposition home or self-care (01) ==
LOC: ED 08:47 → MED SURG 10:46
PROVIDERS: ADMIT General Practice; ATTEND General Practice
DX: R07.9 Chest pain, unspecified (principal); E11.9 Type 2 diabetes mellitus without complications; Z79.899 Other long term (current) drug therapy
CPT/HCPCS: 36000; 36415; 71045; 80053; 82962; 84484; 85025; 85379; 93005; 93041; 93268; 99285; G0378; A9270-GY

== ENCOUNTER 2019-04-15 05:40 | Emergency (ER) | payer MEDICARE, SELFPAY ==
--- NOTE | 2019-04-15 06:04 | ERPHSYRPT ---
- History of Present Illness Source: patient, family Exam Limitations: no limitations Timing/Duration: yesterday Activites at Onset: none Quality: burning, pressure Onset Location: groin (bilat), urethral Severity of Pain-Max: moderate Severity of Pain-Current: moderate Associated Symptoms: dysuria, other (hematuria), No fever, No chills Hx Tetanus, Diphtheria Vaccination/Date Given: Yes Hx Influenza Vaccination/Date Given: Yes Hx Pneumococcal Vaccination/Date Given: Yes <LINDSAY BRADSHAW - Last Filed: 04/15/19 07:00> <RENÉ (ED PHY)MERY - Last Filed: 04/15/19 20:33> - History of Present Illness Time Seen by Provider: 04/15/19 06:00 Physician History: 74 y/o white male on plavix and asa for cardiac stents presents with new onset hematuria and bilat groin pain. sx began yesterday morning. gross hematuria was mild then worsened around noon. he had bilat groin pain in the morning which resolved. however, this am the bilat groin pain returned, gross hematuria persists, and new painful urination. pt told to proceed to ED if pain recurs or worsens. pt denies bleeding from anywhere else (LINDSAY BRADSHAW) Allergies/Adverse Reactions: adhesive Allergy (Verified 04/15/19 06:13) Home Medications: Alprazolam 0.5 mg [xanAX 0.5 MG] 0.5 mg PO HS 11/02/11 [History] Aspirin EC 81 mg [Ecotrin 81 mg] 81 mg PO DAILY 11/02/11 [History] Multivitamin 1 tab PO LUNCH 11/02/11 [History] Sertraline HCl [Zoloft] 50 mg PO DAILY 11/02/11 [History] Carvedilol 3.125 mg [Coreg 3.125 MG] 6.25 mg PO LUNCH 06/18/18 [History] Clonazepam 0.5 mg [Klonopin 0.5 MG] 1 tab PO BID 06/18/18 [History] Magnesium Oxide 1 tab PO LUNCH 06/18/18 [History] Tizanidine HCl 1 tab PO HS 06/18/18 [History] Atorvastatin Calcium 80 mg PO HS 04/15/19 [History] Clopidogrel Bisulfate [Clopidogrel] 75 mg PO DAILY 04/15/19 [History] Metformin HCl 500 mg PO DAILY 04/15/19 [History] - Past Medical History Pertinent Past Medical History: Yes Neurological History: No Pertinent History ENT History: No Pertinent History Cardiac History: Hypertension Respiratory History: No Pertinent History Endocrine Medical History: No Pertinent History, Diabetes Type II Musculoskeletal History: No Pertinent History GI Medical History: No Pertinent History History: No Pertinent History Psycho-Social History: Anxiety, Depression Male Reproductive Disorders: No Pertinent History Other Medical History: KIDNEY STONE - Past Surgical History Past Surgical History: Yes Neuro Surgical History: No Pertinent History Cardiac: Cardiac Catheterization Respiratory: No Pertinent History Gastrointestinal: No Pertinent History Genitourinary: No Pertinent History Musculoskeletal: No Pertinent History Male Surgical History: No Pertinent History Other Surgical History: hernia repair at age 11. undescended testicle repair at age 4 - Social History Smoking Status: Never smoker Exposure to second hand smoke: Yes Drug Use: none Patient Lives Alone: Yes <LINDSAY BRADSHAW - Last Filed: 04/15/19 07:00> - Review of Systems Constitutional: No Symptoms Eyes: No Symptoms Ears, Nose, & Throat: No Symptoms Respiratory: No Symptoms Cardiac: No Symptoms Abdominal/Gastrointestinal: Abdominal Pain (suprapubic pressure) Genitourinary Symptoms: Dysuria, Hematuria Musculoskeletal: No Symptoms Skin: No Symptoms Neurological: No Symptoms Psychological: No Symptoms Endocrine: No Symptoms Hematologic/Lymphatic: No Symptoms Immunological/Allergic: No Symptoms All Other Systems: Reviewed and Negative <LINDSAY BRADSHAW - Last Filed: 04/15/19 07:00> - Physical Exam General Appearance: no apparent distress, alert, anxiety Eye Exam: PERRL/EOMI, eyes nml inspection Ears, Nose, Throat Exam: normal ENT inspection, moist mucous membranes Neck Exam: normal inspection, non-tender, supple, full range of motion Respiratory Exam: normal breath sounds, lungs clear, airway intact, No chest tenderness, No respiratory distress Cardiovascular Exam: regular rate/rhythm, normal heart sounds, normal peripheral pulses Rectal Exam: not done Male Genital Exam: inguinal tenderness (bilateral) Back Exam: normal inspection, normal range of motion, vertebral tenderness, No CVA tenderness Extremity Exam: normal inspection, normal range of motion, pelvis stable Neurologic Exam: alert, oriented x 3, cooperative, chemical strength tester II-XII nml as tested Skin Exam: normal color, warm, dry Lymphatic Exam: No adenopathy SpO2 Interpretation: normal O2 Delivery: Room Air <LINDSAY BRADSHAW - Last Filed: 04/15/19 07:00> - Nursing Vital Signs Nursing Vital Signs: Initial Vital Signs Temperature 97.6 F 04/15/19 05:52 Pulse Rate 64 04/15/19 05:52 Respiratory Rate 18 04/15/19 05:52 Blood Pressure 149/83 04/15/19 05:52 O2 Sat by Pulse Oximetry 98 04/15/19 05:52 Pain Scale Pain Intensity 5 Ordered Tests: Active Orders 24 hr Category Date Time Status IV Insertion STAT Care 04/15/19 06:25 Active ABDOMEN AND PELVIS W/0 CONTRAS [CT] Stat Exams 04/15/19 06:26 Completed CBC W DIFF Stat Lab 04/15/19 06:40 Completed CMP Stat Lab 04/15/19 06:40 Completed CULTURE,URINE Stat Lab 04/15/19 06:40 Received LIPID PROFILE Stat Lab 04/15/19 06:40 Completed Lactic Acid Stat Lab 04/15/19 06:50 Completed PROTIME WITH INR Stat Lab 04/15/19 06:40 Completed UA W/RFX UR CULTURE Stat Lab 04/15/19 06:40 Completed Medication Summary Discontinued Medications Generic Name Dose Route Start Last Admin Trade Name Freq PRN Reason Stop Dose Admin Sodium Chloride 1,000 mls @ 999 mls/hr 04/15/19 06:25 04/15/19 08:13 Sodium Chloride 0.9% 1000 Ml IV 04/15/19 07:25 Infused .Q1H1M STA Infusion Sodium Chloride Confirm 04/15/19 06:55 Sodium Chloride 0.9% 1000 Ml Administered 04/15/19 06:56 Dose 1,000 mls @ ud .ROUTE .STK-MED ONE Morphine Sulfate Confirm 04/15/19 08:19 Morphine Sulfate 4 Mg Inj Administered 04/15/19 08:20 Dose 4 mg .ROUTE .STK-MED ONE Morphine Sulfate 4 mg 04/15/19 08:22 04/15/19 08:26 Morphine Sulfate 4 Mg Inj IV 04/15/19 08:23 4 mg STAT ONE Administration Lab/Rad Data: Laboratory Result Diagrams 04/15/19 06:40 04/15/19 06:40 Laboratory Results 04/15/19 04/15/19 04/15/19 Range/Units 06:50 06:40 06:40 WBC (4.0-10.5) K/mm3 RBC (4.1-5.6) M/mm3 Hgb (12.5-18.0) gm/dl Hct (42-50) % MCV (78-100) fl MCH (26-32) pg MCHC (32-36) g/dl RDW (11.5-14.0) % Plt Count (150-450) K/mm3 MPV (6-9.5) fl Gran % (36.0-66.0) % Eos # (Auto) (0-0.5) Absolute Lymphs (auto) (1.0-4.6) Absolute Monos (auto) (0.0-1.3) Lymphocytes % (24.0-44.0) % Monocytes % (0.0-12.0) % Eosinophils % (0.00-5.0) % Basophils % (0.0-0.4) % Absolute Granulocytes (1.4-6.9) Basophils # (0-0.4) PT 11.6 (8.83-12.87) SECONDS INR 1.03 (0.8-3.0) Sodium (137-145) mmol/L Potassium (3.5-5.1) mmol/L Chloride (98-107) mmol/L Carbon Dioxide (22-30) mmol/L Anion Gap (5-15) MEQ/L BUN (9-20) mg/dL Creatinine (0.66-1.25) mg/dL Estimated GFR ML/MIN Glucose (74-106) mg/dL Lactic Acid 1.1 (0.4-2.0) Calcium (8.4-10.2) mg/dL Total Bilirubin (0.2-1.3) mg/dL AST (17-59) U/L ALT (0-50) U/L Alkaline Phosphatase (38-126) U/L Serum Total Protein (6.3-8.2) g/dL Albumin (3.5-5.0) g/dL Triglycerides (30-150) mg/dL Cholesterol (50-200) mg/dL LDL Cholesterol (30-100) mg/dL HDL Cholesterol (40-60) mg/dL Heart Disease Risk Ratio Urine Color RED (YELLOW) Urine Appearance CLOUDY (CLEAR) Urine pH 6.0 (5-6) Ur Specific Victoria 1.013 (1.005-1.025) Urine Protein 100 (Negative) Urine Ketones NEGATIVE (NEGATIVE) Urine Blood MODERATE (0-5) Josafat/ul Urine Nitrite NEGATIVE (NEGATIVE) Urine Bilirubin NEGATIVE (NEGATIVE) Urine Urobilinogen NEGATIVE (0-1) mg/dL Ur Leukocyte Esterase NEGATIVE (NEGATIVE) Urine WBC (Auto) NONE (0-5) /HPF Urine RBC (Auto) >101 (0-2) /HPF U Epithel Cells (Auto) FEW (FEW) /HPF Urine Bacteria (Auto) FEW (NEGATIVE) /HPF Urine Culture Reflexed YES (NO) Urine Glucose 50 (NEGATIVE) mg/dL 04/15/19 04/15/19 Range/Units 06:40 06:40 WBC 8.1 (4.0-10.5) K/mm3 RBC 4.49 (4.1-5.6) M/mm3 Hgb 14.3 (12.5-18.0) gm/dl Hct 43.5 (42-50) % MCV 96.9 (78-100) fl MCH 31.8 (26-32) pg MCHC 32.9 (32-36) g/dl RDW 12.8 (11.5-14.0) % Plt Count 205 (150-450) K/mm3 MPV 8.8 (6-9.5) fl Gran % 54.5 (36.0-66.0) % Eos # (Auto) 0.49 (0-0.5) Absolute Lymphs (auto) 2.41 (1.0-4.6) Absolute Monos (auto) 0.77 (0.0-1.3) Lymphocytes % 29.8 (24.0-44.0) % Monocytes % 9.5 (0.0-12.0) % Eosinophils % 6.0 H (0.00-5.0) % Basophils % 0.2 (0.0-0.4) % Absolute Granulocytes 4.41 (1.4-6.9) Basophils # 0.02 (0-0.4) PT (8.83-12.87) SECONDS INR (0.8-3.0) Sodium 143 (137-145) mmol/L Potassium 4.5 (3.5-5.1) mmol/L Chloride 105 (98-107) mmol/L Carbon Dioxide 30 (22-30) mmol/L Anion Gap 12.5 (5-15) MEQ/L BUN 21 H (9-20) mg/dL Creatinine 1.12 (0.66-1.25) mg/dL Estimated GFR > 60.0 ML/MIN Glucose 114 H (74-106) mg/dL Lactic Acid (0.4-2.0) Calcium 10.0 (8.4-10.2) mg/dL Total Bilirubin 0.90 (0.2-1.3) mg/dL AST 25 (17-59) U/L ALT 23 (0-50) U/L Alkaline Phosphatase 65 (38-126) U/L Serum Total Protein 7.7 (6.3-8.2) g/dL Albumin 4.6 (3.5-5.0) g/dL Triglycerides 145 (30-150) mg/dL Cholesterol 106 (50-200) mg/dL LDL Cholesterol 52 (30-100) mg/dL HDL Cholesterol 33 L (40-60) mg/dL Heart Disease Risk Ratio 3.3 Urine Color (YELLOW) Urine Appearance (CLEAR) Urine pH (5-6) Ur Specific Victoria (1.005-1.025) Urine Protein (Negative) Urine Ketones (NEGATIVE) Urine Blood (0-5) Josafat/ul Urine Nitrite (NEGATIVE) Urine Bilirubin (NEGATIVE) Urine Urobilinogen (0-1) mg/dL Ur Leukocyte Esterase (NEGATIVE) Urine WBC (Auto) (0-5) /HPF Urine RBC (Auto) (0-2) /HPF U Epithel Cells (Auto) (FEW) /HPF Urine Bacteria (Auto) (NEGATIVE) /HPF Urine Culture Reflexed (NO) Urine Glucose (NEGATIVE) mg/dL <LINDSAY BRADSHAW - Last Filed: 04/15/19 07:00> - Progress Progress: improved <RENÉ (MINI CROOK)MERY - Last Filed: 04/15/19 20:33> - Progress Progress Note: 04/15/19 07:[address] transfer of care to [address] bueno. she accepts (LINDSAY BRADSHAW) <LINDSAY BRADSHAW - Last Filed: 04/15/19 07:00> - Departure Departure Disposition: Transfer ([facility]) Critical Care Time: No <BUENO (MINI CROOK)MERY - Last Filed: 04/15/19 20:33> - Departure Clinical Impression: Ureteral stenosis, Kidney stone on left side, Hematuria, Hx of fpc use of blood thinners Condition: Stable Referrals: ANDRE PARKS MD [Primary Care Provider] - Plan of Treatment: Pt was transferred to [facility] after discussing his 8-9 mm ureteral stone in his left ureter with stenosis inferior to it. Pt has a hx of kidney stones and has had to have Dr. Cardona remove in the past. Dr. Cardona instructed to transfer the pt to [facility] and he would be admitted and he would take care of the stone. Drt. Farmer accepted this pt to [facility].
[2019-04-15] MEDS ORDERED: Sodium Chloride 0.9% 1000 ML 1,000 ML IV STA (06:25)
[2019-04-15] MEDS ORDERED: Sodium Chloride 0.9% 1000 ML 1,000 ML ONE (06:55)
[2019-04-15 07:04] LABS: Absolute Neutrophil Ct (ANC) 4.41 (1.4-6.9); BASOPHIL % 0.2 % (0.0-0.4); Basophil (Absolute #) 0.02 (0-0.4); Eosinophil (Absolute #) 0.49 (0-0.5); Hematocrit 43.5 % (42-50); Hemoglobin 14.3 gm/dl (12.5-18.0); Lymphocyte (Absolute #) 2.41 (1.0-4.6); Lymphocytes % 29.8 % (24.0-44.0); Mean Cell Volume 96.9 fl (78-100); Mean Corpuscular Hemoglobin 31.8 pg (26-32); Mean Corpuscular Hgb Concent. 32.9 g/dl (32-36); Mean Platelet Volume 8.8 fl (6-9.5); Monocyte (Absolute #) 0.77 (0.0-1.3); Monocytes % 9.5 % (0.0-12.0); Neutrophil % 54.5 % (36.0-66.0); Platelet Count 205 K/mm3 (150-450); Red Blood Count 4.49 M/mm3 (4.1-5.6); Red Cell Distribution Width 12.8 % (11.5-14.0); White Blood Count 8.1 K/mm3 (4.0-10.5)
[2019-04-15 07:05] LABS: INR 1.03 (0.8-3.0); PROTIME 11.6 SECONDS (8.83-12.87)
[2019-04-15 07:12] LABS: ALBUMIN 4.6 g/dL (3.5-5.0); ALKALINE PHOSPHATASE 65 U/L (38-126); ANION GAP 12.5 MEQ/L (5-15); BLOOD UREA NITROGEN 21 mg/dL (9-20); CHLORIDE 105 mmol/L (98-107); Carbon Dioxide 30 mmol/L (22-30); Cholesterol 106 mg/dL (50-200); Creatinine 1 1.12 mg/dL (0.66-1.25); Glucose 114 mg/dL (74-106); HDL CHOLESTEROL 33 mg/dL (40-60); Potassium 4.5 mmol/L (3.5-5.1); Risk Ratio 3.3; SGOT/AST 25 U/L (17-59); SGPT/ALT 23 U/L (0-50); SODIUM 143 mmol/L (137-145); TRIGLYCERIDE 145 mg/dL (30-150); Total Protein 7.7 g/dL (6.3-8.2)
[2019-04-15 07:13] LABS: Appearance CLOUDY (CLEAR); Bacteria FEW /HPF (NEGATIVE); Bilirubin NEGATIVE (NEGATIVE); Blood MODERATE Ery/ul (0-5); Epithelial Cells FEW /HPF (FEW); Glucose 50 mg/dL (NEGATIVE); Ketones NEGATIVE (NEGATIVE); Leukocyte Esterase NEGATIVE (NEGATIVE); Nitrite NEGATIVE (NEGATIVE); Protein,Urine Dip 100 (Negative); Specific Gravity 1.013 (1.005-1.025); Urobilinogen NEGATIVE mg/dL (0-1)
[2019-04-15 07:15] LABS: RBC >101 /HPF (0-2)
[2019-04-15 07:29] LABS: LDL, DIRECT 52 mg/dL (30-100)
[2019-04-15 07:59] VITALS: O2SAT 97
[2019-04-15] MEDS ORDERED: MORPHINE SULFATE 4 MG INJ ONE (08:19)
[2019-04-15] MEDS ORDERED: MORPHINE SULFATE 4 MG INJ IV ONE (08:22)
[2019-04-15 08:52] VITALS: BP 134/94; PULSE 71
--- NOTE | 2019-04-15 09:09 | XRAY ---
Indication: Bilateral groin pain. Hematuria. History renal stones. Multiple contiguous axial images obtained through the abdomen and pelvis without contrast using renal stone protocol. Comparison: None. Lung bases demonstrate mild bilateral dependent atelectasis, minimal scattered fibrosis/scarring, and small right lower lobe calcified granuloma. No infiltrate or effusion. Heart is not enlarged. There is a 8-9 mm proximal left ureter calculus, approximately L4 level. Proximal left ureter is distended and there is moderate/significant hydronephrosis consistent with high-grade obstruction. A 2-3 mm urinary bladder calculus seen adjacent to the right UVJ. Right ureter is slightly prominent and there is mild right hydronephrosis from recent passage of calculus. There are additional bilateral renal punctate calculi. Noncontrasted stomach and bowel loops appear nonobstructed. Normal appendix. No free fluid/air. Minimal sigmoid diverticulosis and tiny calcified splenic granuloma. Remaining liver, gallbladder, pancreas, spleen, adrenal glands, kidneys, ureters, and bladder appear unremarkable for noncontrast exam. Mild aortoiliac calcifications without AAA. Osseous structures intact with mild/moderate degenerative changes throughout the thoracolumbar spine, greatest at L5-S1 level. Small fatty left inguinal hernia. Impression: 1. 8-9 mm left ureteral calculus producing high-grade obstruction as detailed. Additional 2-3 mm right urinary bladder calculus and bilateral renal micro-calculi. 2. 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 CTDI 6.77
== END 2019-04-15 09:00 | disposition short-term general hospital (02) ==
LOC: ED 05:40
DX: N13.5 Crossing vessel and stricture of ureter without hydronephrosis (principal); N20.0 Calculus of kidney; R31.9 Hematuria, unspecified; I10 Essential (primary) hypertension; E11.9 Type 2 diabetes mellitus without complications; R30.0 Dysuria; Z79.01 Long term (current) use of anticoagulants
CPT/HCPCS: 36000; 36415; 74176; 80053; 80061; 81001; 83605; 83721; 85025; 85610; 87086; 96360; 96374; 99285; J2270

== ENCOUNTER 2022-05-18 10:54 | Emergency (ER) | payer MEDICARE ==
--- NOTE | 2022-05-18 11:21 | ERPHSYRPT ---
- History of Present Illness Time Seen by Provider: 05/18/22 11:20 Source: patient Exam Limitations: no limitations Patient Subjective Stated Complaint: Pt states "I am having pain in my left shoulder and the left side of my neck for the past two weeks. I went to [facility] and they did an ekg but not an x ray or anything. It really hurts at night and I am having a hard time sleeping." Triage Nursing Assessment: Pt presented alert and oriented X 3, skin pwd. Pt ambulates with an upright steady gait, able to speak in clear full sentences pt in no apparent respiratory distress. Pt resting comfortably on the bed. Physician History: This is a 77-year-old white male patient who has complaints of intermittent left neck and left shoulder pain orally at nighttime over the last 2 weeks. Patient went to [facility] No x-rays were performed. A twelve-lead EKG was performed at that time and he did not get the results of that. Patient states his symptoms are worse at nighttime. It does interfere with his ability to sleep at times. He has no chest pain. There is no shortness of breath. He has no abdominal pain. He denies any fall or acute traumatic injury. Occurred: other (2 weeks) Method of Injury: other (No acute injury) Quality: intermittent, aching, throbbing Severity of Pain-Max: mild (To moderate) Severity of Pain-Current: mild (To moderate) Extremities Pain Location: shoulder: left Modifying Factors: Improves With: nothing, movement Associated Symptoms: neck pain (Left side muscular), No chest discomfort, No chest pain, No dyspnea Allergies/Adverse Reactions: adhesive Allergy (Verified 04/15/19 06:13) Home Medications: ALPRAZolam 0.5 MG [xanAX 0.5 MG] 0.5 mg PO HS 11/02/11 [History] Aspirin EC 81 mg [Ecotrin 81 mg] 81 mg PO DAILY 11/02/11 [History] Multivitamin 1 tab PO LUNCH 11/02/11 [History] Sertraline HCl [Zoloft] 50 mg PO DAILY 11/02/11 [History] Carvedilol 3.125 mg [Coreg 3.125 MG] 6.25 mg PO LUNCH 06/18/18 [History] Clonazepam 0.5 mg [Klonopin 0.5 MG] 1 tab PO BID 06/18/18 [History] Magnesium Oxide 1 tab PO LUNCH 06/18/18 [History] Tizanidine HCl 1 tab PO HS 06/18/18 [History] Atorvastatin Calcium 80 mg PO HS 04/15/19 [History] Clopidogrel Bisulfate [Clopidogrel] 75 mg PO DAILY 04/15/19 [History] Metformin HCl 500 mg PO DAILY 04/15/19 [History] Hx Tetanus, Diphtheria Vaccination/Date Given: Yes Hx Influenza Vaccination/Date Given: Yes Hx Pneumococcal Vaccination/Date Given: Yes Immunizations Up to Date: Yes Travel Risk - International Travel Have you traveled outside of the country in past 3 weeks: No - Coronavirus Screening Are you exhibiting any of the following symptoms?: No Close contact with a COVID-19 positive Pt in past 14-21 Days: No - Vaccine Status Have you recieved a Covid-19 vaccination: Yes [employer]: Moderna - Vaccination Dates Date of 2cond Vaccination (if applicable): 2020 - Review of Systems Constitutional: No Symptoms Eyes: No Symptoms Ears, Nose, & Throat: No Symptoms Respiratory: No Symptoms Cardiac: No Symptoms Abdominal/Gastrointestinal: No Symptoms Genitourinary Symptoms: No Symptoms Musculoskeletal: Neck Pain (Left side muscular), Joint Pain (Left shoulder) Skin: No Symptoms Neurological: No Symptoms Psychological: No Symptoms Endocrine: No Symptoms Hematologic/Lymphatic: No Symptoms Immunological/Allergic: No Symptoms All Other Systems: Reviewed and Negative - Past Medical History Pertinent Past Medical History: Yes Neurological History: No Pertinent History ENT History: No Pertinent History Cardiac History: Hypertension Respiratory History: No Pertinent History Endocrine Medical History: No Pertinent History, Diabetes Type II Musculoskeletal History: No Pertinent History GI Medical History: No Pertinent History History: No Pertinent History Psycho-Social History: Anxiety, Depression Male Reproductive Disorders: No Pertinent History Other Medical History: KIDNEY STONE - Past Surgical History Past Surgical History: Yes Neuro Surgical History: No Pertinent History Cardiac: Cardiac Catheterization Respiratory: No Pertinent History Gastrointestinal: No Pertinent History Genitourinary: No Pertinent History Musculoskeletal: No Pertinent History Male Surgical History: No Pertinent History Other Surgical History: hernia repair at age 11. undescended testicle repair at age 4 - Social History Smoking Status: Never smoker Exposure to second hand smoke: Yes Drug Use: none Patient Lives Alone: Yes - Nursing Vital Signs Nursing Vital Signs: Initial Vital Signs Temperature 97.2 F 05/18/22 11:01 Pulse Rate 64 05/18/22 11:01 Respiratory Rate 20 05/18/22 11:01 Blood Pressure 157/79 05/18/22 11:01 O2 Sat by Pulse Oximetry 99 05/18/22 11:01 Pain Scale Pain Intensity 4 - Physical Exam General Appearance: no apparent distress, alert, anxiety, thin Eyes, Ears, Nose, Throat Exam: normal ENT inspection, moist mucous membranes Neck Exam: normal inspection, non-tender, supple, full range of motion Cardiovascular/Respiratory Exam: chest non-tender, no respiratory distress Abdominal Exam: non-tender Back Exam: normal inspection, normal range of motion, No CVA tenderness, No vertebral tenderness Shoulder Exam: normal inspection, no evidence of injury, normal ROM, pain (Left joint) Elbow/Forearm Exam: normal inspection, non-tender, no evidence of injury, normal ROM Wrist Exam: normal inspection, non-tender, no evidence of injury, normal ROM Hand Exam: normal inspection, non-tender, no evidence of injury, normal ROM Neuro/Tendon Exam: normal sensation, normal motor functions, normal tendon functions, responds to pain, no evidence tendon injury Mental Status Exam: alert, oriented x 3, cooperative Skin Exam: normal color, warm, dry SpO2 Interpretation: normal SpO2: 99 O2 Delivery: Room Air - Course Nursing assessment & vital signs reviewed: Yes EKG Interpreted by Me: RATE, Sinus Rhythm, NORMAL AXIS, NORMAL INTERVALS, Right Bundle Branch Block, Other (No acute ischemic changes on today's twelve-lead EKG. No significant difference when compared to twelve-lead EKG dated 06/18/2018. I interpreted this EKG.) Ordered Tests: Active Orders 24 hr Category Date Time Status Material Checker STAT Care 05/18/22 11:25 Active EKG-ER Only STAT Care 05/18/22 11:25 Active Pulse Oximetry (ED) STAT Care 05/18/22 11:25 Active SHOULDER Stat Exams 05/18/22 11:25 Completed CBC W DIFF Stat Lab 05/18/22 12:05 Received CMP Stat Lab 05/18/22 12:05 Received TROPONIN Q4H Lab 05/18/22 12:05 Received TROPONIN Q4H Lab 05/18/22 15:30 Ordered TROPONIN Q4H Lab 05/18/22 19:30 Ordered - Progress Progress: unchanged Progress Note: 05/18/22 12:19 X-ray of the left shoulder shows multilevel cervical thoracic degenerative changes. In addition, there is mild left AC degenerative changes. Counseled pt/family regarding: lab results, diagnosis, need for follow-up, rad results - Departure Departure Disposition: Home Clinical Impression: Shoulder arthritis, Degenerative arthritis of cervical spine Condition: Stable Critical Care Time: No Referrals: ANDRE PARKS MD [Primary Care Provider] - Follow up/PCP as directed Additional Instructions: Increase your tizanidine to every 6 hours as needed for neck and shoulder spasms. Take your steroids as prescribed. Monitor your blood sugar closely while taking the steroids. Follow-up with your primary care physician for further evaluation and management. Prescriptions: Prednisone 10 mg [Deltasone 10 mg] 10 mg PO TID #12 tablet
--- NOTE | 2022-05-18 12:02 | XRAY ---
Indication: Pain following injury 2 weeks ago. Comparison: None 3 view left shoulder demonstrates osteopenia, mild AC degenerative changes, mild multilevel cervical thoracic degenerative spondylosis, and mild levoscoliosis. No other bony, articular, or soft tissue abnormalities.
[2022-05-18 12:14] LABS: Absolute Neutrophil Ct (ANC) 3.73 x10^3/uL (1.4-6.9); Basophil (Absolute #) 0.04 x10^3/uL (0-0.4); Eosinophil % 5.3 % (0.00-5.0); Eosinophil (Absolute #) 0.36 x10^3/uL (0-0.5); Hematocrit 41.6 % (42-50); Hemoglobin 13.6 g/dL (12.5-18.0); Lymphocytes % 30.7 % (24.0-44.0); Mean Cell Volume 97.4 fL (78-100); Mean Corpuscular Hemoglobin 31.9 pg (26-32); Mean Corpuscular Hgb Concent. 32.7 g/dL (32-36); Mean Platelet Volume 8.7 fL (7.5-11.0); Monocyte (Absolute #) 0.58 x10^3/uL (0.0-1.3); Monocytes % 8.5 % (0.0-12.0); Neutrophil % 54.5 % (36.0-66.0); Platelet Count 207 x10^3/uL (150-450); Red Blood Count 4.27 x10^6/uL (4.1-5.6); Red Cell Distribution Width 12.8 % (11.5-14.0); White Blood Count 6.8 x10^3/uL (4.0-10.5)
[2022-05-18 12:27] LABS: ALBUMIN 4.1 g/dL (3.5-5.0); ALKALINE PHOSPHATASE 91 U/L (38-126); ANION GAP 10.2 MEQ/L (5-15); BLOOD UREA NITROGEN 17 mg/dL (9-20); CHLORIDE 109 mmol/L (98-107); Calcium 8.6 mg/dL (8.4-10.2); Carbon Dioxide 26 mmol/L (22-30); Creatinine 1 0.77 mg/dL (0.66-1.25); EST GLOMERULAR FILTRATION RATE > 60.0 ML/MIN; Glucose 98 mg/dL (74-106); Potassium 4.1 mmol/L (3.5-5.1); SGOT/AST 26 U/L (17-59); SGPT/ALT 18 U/L (0-50); SODIUM 142 mmol/L (137-145); Total Protein 6.7 g/dL (6.3-8.2)
[2022-05-18 12:59] VITALS: BP 134/70; PULSE 61; O2SAT 98
== END 2022-05-18 13:08 | disposition home or self-care (01) ==
LOC: ED 10:54
DX: M19.012 Primary osteoarthritis, left shoulder (principal); M47.892 Other spondylosis, cervical region; M25.512 Pain in left shoulder; M54.2 Cervicalgia; I10 Essential (primary) hypertension; E11.9 Type 2 diabetes mellitus without complications; Z79.52 Long term (current) use of systemic steroids; Z79.02 Long term (current) use of antithrombotics/antiplatelets; Z79.84 Long term (current) use of oral hypoglycemic drugs; Z79.899 Other long term (current) drug therapy
CPT/HCPCS: 36415; 73030; 80053; 84484; 85025; 93005; 93041; 94760; 99284

== ENCOUNTER 2022-12-13 18:36 | Emergency (ER) | payer MEDICARE, SELFPAY ==
[2022-12-13 18:44] VITALS: TEMP 98.1
--- NOTE | 2022-12-13 18:45 | ERPHSYRPT ---
- History of Present Illness Time Seen by Provider: 12/13/22 18:45 Source: patient Exam Limitations: no limitations Patient Subjective Stated Complaint: PT states "I was mowing and I felt a wheeze in my chest. I am in no pain, no shortness of breath, but I thought I should come in and be checked out." Triage Nursing Assessment: PT presented alert and oriented X 3, skin pwd. Pt ambulates with an upright steady gait, able to speak in clear full senentences. PT resting comfortably on the bed. Physician History: This is a 77-year-old white male patient primary care provider Dr. Parks and design drafter Dr. Khoury who presents with a "wheeze" in his central chest. It is not a pain. He is a little short of breath after mowing 2 days ago. Patient does have a history of coronary disease (single cardiac stent) and is only taking 1 baby aspirin. He was on Plavix but they took him off that medication. Patient has a history of hypertension, hyperlipidemia, diabetes and anxiety. He just wanted to be checked out. He denies cough. He has no abdominal pain. He said no fever. Timing/Duration: today Severity: mild Associated Symptoms: shortness of breath, No nausea, No vomiting, No abdominal pain, No chest pain Allergies/Adverse Reactions: adhesive Allergy (Verified 04/15/19 06:13) Home Medications: ALPRAZolam 0.5 MG [xanAX 0.5 MG] 0.5 mg PO HS 11/02/11 [History] Aspirin EC 81 mg [Ecotrin 81 mg] 81 mg PO DAILY 11/02/11 [History] Multivitamin 1 tab PO LUNCH 11/02/11 [History] Sertraline HCl [Zoloft] 50 mg PO DAILY 11/02/11 [History] Carvedilol 3.125 mg [Coreg 3.125 MG] 6.25 mg PO LUNCH 06/18/18 [History] Clonazepam 0.5 mg [Klonopin 0.5 MG] 1 tab PO BID 06/18/18 [History] Magnesium Oxide 1 tab PO LUNCH 06/18/18 [History] Tizanidine HCl 1 tab PO HS 06/18/18 [History] Atorvastatin Calcium 80 mg PO HS 04/15/19 [History] Metformin HCl 500 mg PO DAILY 04/15/19 [History] Hx Tetanus, Diphtheria Vaccination/Date Given: Yes Hx Influenza Vaccination/Date Given: Yes Hx Pneumococcal Vaccination/Date Given: Yes Immunizations Up to Date: Yes Travel Risk - International Travel Have you traveled outside of the country in past 3 weeks: No - Coronavirus Screening Are you exhibiting any of the following symptoms?: No Close contact with a COVID-19 positive Pt in past 14-21 Days: No - Vaccine Status Have you recieved a Covid-19 vaccination: Yes Clinical Care Manager: Moderna - Vaccination Dates Date of 2cond Vaccination (if applicable): 2020 - Review of Systems Constitutional: No Symptoms Eyes: No Symptoms Ears, Nose, & Throat: No Symptoms Respiratory: Dyspnea Cardiac: No Symptoms, No Chest Pain Abdominal/Gastrointestinal: No Symptoms Genitourinary Symptoms: No Symptoms Musculoskeletal: No Symptoms Skin: No Symptoms Neurological: No Symptoms Psychological: No Symptoms Endocrine: No Symptoms Hematologic/Lymphatic: No Symptoms Immunological/Allergic: No Symptoms All Other Systems: Reviewed and Negative - Past Medical History Pertinent Past Medical History: Yes Neurological History: No Pertinent History ENT History: No Pertinent History Cardiac History: Hypertension Respiratory History: No Pertinent History Endocrine Medical History: No Pertinent History, Diabetes Type II Musculoskeletal History: No Pertinent History GI Medical History: No Pertinent History History: No Pertinent History Psycho-Social History: Anxiety, Depression Male Reproductive Disorders: No Pertinent History Other Medical History: KIDNEY STONE - Past Surgical History Past Surgical History: Yes Neuro Surgical History: No Pertinent History Cardiac: Cardiac Catheterization Respiratory: No Pertinent History Gastrointestinal: No Pertinent History Genitourinary: No Pertinent History Musculoskeletal: No Pertinent History Male Surgical History: No Pertinent History Other Surgical History: hernia repair at age 11. undescended testicle repair at age 4 - Social History Smoking Status: Never smoker Exposure to second hand smoke: Yes Drug Use: none Patient Lives Alone: Yes - Nursing Vital Signs Nursing Vital Signs: Initial Vital Signs Temperature 98.1 F 12/13/22 18:37 Pulse Rate 93 H 12/13/22 18:37 Respiratory Rate 22 12/13/22 18:37 Blood Pressure 155/87 12/13/22 18:37 O2 Sat by Pulse Oximetry 96 12/13/22 18:37 Pain Scale Pain Intensity 0 - Physical Exam General Appearance: no apparent distress, alert, anxiety Eye Exam: PERRL/EOMI, eyes nml inspection Ears, Nose, Throat Exam: normal ENT inspection, moist mucous membranes Neck Exam: normal inspection, non-tender, supple, full range of motion Respiratory Exam: normal breath sounds, lungs clear, airway intact, No chest tenderness, No respiratory distress Cardiovascular Exam: regular rate/rhythm, normal heart sounds, normal peripheral pulses Gastrointestinal/Abdomen Exam: soft, normal bowel sounds, No tenderness Rectal Exam: not done Back Exam: normal inspection, normal range of motion, No CVA tenderness, No vertebral tenderness Extremity Exam: normal inspection, normal range of motion, pelvis stable Neurologic Exam: alert, oriented x 3, cooperative, bridge engineer II-XII nml as tested, normal mood/affect, nml cerebellar function, nml station & gait, sensation nml Skin Exam: normal color, warm, dry Lymphatic Exam: No adenopathy SpO2 Interpretation: normal SpO2: 96 O2 Delivery: Room Air - Course Nursing assessment & vital signs reviewed: Yes EKG Interpreted by Me: RATE (92), Sinus Rhythm, LAFB (Incomplete), NORMAL INTERVALS, Right Bundle Branch Block (Incomplete), NORMAL ST-T, Other (No acute ischemic changes on today's twelve-lead EKG.) Ordered Tests: Active Orders 24 hr Category Date Time Status Mixing Machine Tender Cork Gasket STAT Care 12/13/22 18:51 Active EKG-ER Only STAT Care 12/13/22 18:51 Active IV Insertion STAT Care 12/13/22 18:51 Active Pulse Oximetry (ED) STAT Care 12/13/22 18:51 Active CHEST 1 VIEW (PORTABLE) Stat Exams 12/13/22 19:18 Taken CBC W DIFF Stat Lab 12/13/22 19:20 Completed CMP Stat Lab 12/13/22 19:20 Completed D-DIMER QUANTITATIVE Stat Lab 12/13/22 19:20 Completed NT PRO BNPII Stat Lab 12/13/22 19:20 Completed TROPONIN Q4H Lab 12/13/22 19:20 Completed TROPONIN Q4H Lab 12/13/22 23:00 Ordered TROPONIN Q4H Lab 12/14/22 03:00 Ordered Lab/Rad Data: Laboratory Result Diagrams 12/13/22 19:20 12/13/22 19:20 Laboratory Results 12/13/22 12/13/22 12/13/22 Range/Units 19:20 19:20 19:20 WBC (4.0-10.5) x10^3/uL RBC (4.1-5.6) x10^6/uL Hgb (12.5-18.0) g/dL Hct (42-50) % MCV (78-100) fL MCH (26-32) pg MCHC (32-36) g/dL RDW (11.5-14.0) % Plt Count (150-450) x10^3/uL MPV (7.5-11.0) fL Gran % (36.0-66.0) % Immature Gran % (Auto) (0.00-0.4) % Nucleat RBC Rel Count (0.00-0.1) % Eos # (Auto) (0-0.5) x10^3/uL Immature Gran # (Auto) (0.00-0.03) x10^3u/L Absolute Lymphs (auto) (1.0-4.6) x10^3/uL Absolute Monos (auto) (0.0-1.3) x10^3/uL Absolute Nucleated RBC (0.00-0.01) x10^3u/L Lymphocytes % (24.0-44.0) % Monocytes % (0.0-12.0) % Eosinophils % (0.00-5.0) % Basophils % (0.0-0.4) % Absolute Granulocytes (1.4-6.9) x10^3/uL Basophils # (0-0.4) x10^3/uL D-Dimer 0.29 (0.0-0.50) mg/L Sodium (137-145) mmol/L Potassium (3.5-5.1) mmol/L Chloride (98-107) mmol/L Carbon Dioxide (22-30) mmol/L Anion Gap (5-15) MEQ/L BUN (9-20) mg/dL Creatinine (0.66-1.25) mg/dL Estimated GFR ML/MIN Glucose (74-106) mg/dL Calcium (8.4-10.2) mg/dL Total Bilirubin (0.2-1.3) mg/dL AST (17-59) U/L ALT (0-50) U/L Alkaline Phosphatase (38-126) U/L Troponin I < 0.012 (0.000-0.034) ng/mL NT-Pro-B Natriuret Pep 63.3 (<300) pg/mL Serum Total Protein (6.3-8.2) g/dL Albumin (3.5-5.0) g/dL 12/13/22 12/13/22 Range/Units 19:20 19:20 WBC 7.0 (4.0-10.5) x10^3/uL RBC 4.34 (4.1-5.6) x10^6/uL Hgb 13.8 (12.5-18.0) g/dL Hct 42.2 (42-50) % MCV 97.2 (78-100) fL MCH 31.8 (26-32) pg MCHC 32.7 (32-36) g/dL RDW 12.2 (11.5-14.0) % Plt Count 203 (150-450) x10^3/uL MPV 8.4 (7.5-11.0) fL Gran % 57.6 (36.0-66.0) % Immature Gran % (Auto) 0.3 (0.00-0.4) % Nucleat RBC Rel Count 0.0 (0.00-0.1) % Eos # (Auto) 0.26 (0-0.5) x10^3/uL Immature Gran # (Auto) 0.02 (0.00-0.03) x10^3u/L Absolute Lymphs (auto) 2.14 (1.0-4.6) x10^3/uL Absolute Monos (auto) 0.52 (0.0-1.3) x10^3/uL Absolute Nucleated RBC 0.00 (0.00-0.01) x10^3u/L Lymphocytes % 30.6 (24.0-44.0) % Monocytes % 7.4 (0.0-12.0) % Eosinophils % 3.7 (0.00-5.0) % Basophils % 0.4 (0.0-0.4) % Absolute Granulocytes 4.02 (1.4-6.9) x10^3/uL Basophils # 0.03 (0-0.4) x10^3/uL D-Dimer (0.0-0.50) mg/L Sodium 138 (137-145) mmol/L Potassium 4.6 (3.5-5.1) mmol/L Chloride 105 (98-107) mmol/L Carbon Dioxide 23 (22-30) mmol/L Anion Gap 14.3 (5-15) MEQ/L BUN 22 H (9-20) mg/dL Creatinine 0.92 (0.66-1.25) mg/dL Estimated GFR > 60.0 ML/MIN Glucose 139 H (74-106) mg/dL Calcium 9.3 (8.4-10.2) mg/dL Total Bilirubin 0.80 (0.2-1.3) mg/dL AST 24 (17-59) U/L ALT 25 (0-50) U/L Alkaline Phosphatase 79 (38-126) U/L Troponin I (0.000-0.034) ng/mL NT-Pro-B Natriuret Pep (<300) pg/mL Serum Total Protein 6.8 (6.3-8.2) g/dL Albumin 4.1 (3.5-5.0) g/dL - Progress Progress: improved, re-examined Progress Note: 12/13/22 20:03 Patient's medical history is 1 of moderate complexity. Level complexity in the work-up performed is based on review of the patient's past medical history, review of the patient's medication list, review of the drug allergy list, history present illness and physical findings on examination. The work-up in this patient includes a twelve-lead EKG (which I interpreted), CBC, CMP, D-dimer and troponin level as well as a chest x-ray. I also interpreted the chest x- ray. There is no evidence of any acute cardiopulmonary process on the chest x- ray. This patient has no chest pain at this time. His room air oxygenation level is 98 to 99%. He is stable for discharge. He will follow-up with his primary care provider on 12/14/2022 as well as his design drafter for further ev aluation and management. Counseled pt/family regarding: lab results, need for follow-up, rad results Medical Desision Making - Diagnostic Testing Diagnostic test were ordered, analyzed, and reviewed by me: Yes Radiological Interpretation: Interpreted by me - Risk of complications Low Risk: Low risk of morbidity from additional dx testing or treatment - Departure Departure Disposition: Home Clinical Impression: Shortness of breath Condition: Stable Critical Care Time: No Referrals: ANDRE PARKS MD [Primary Care Provider] - Follow up/PCP as directed Additional Instructions: Continue medication as prescribed. Call your primary care provider and design drafter tomorrow, 12/14/2022, in the morning to make arrangements for follow- up appointment. Return the emergency department if symptoms recur/worsen
[2022-12-13 19:26] LABS: Absolute Neutrophil Ct (ANC) 4.02 x10^3/uL (1.4-6.9); BASOPHIL % 0.4 % (0.0-0.4); Basophil (Absolute #) 0.03 x10^3/uL (0-0.4); Eosinophil % 3.7 % (0.00-5.0); Eosinophil (Absolute #) 0.26 x10^3/uL (0-0.5); Hematocrit 42.2 % (42-50); Hemoglobin 13.8 g/dL (12.5-18.0); IMMATURE GRAN # 0.02 x10^3u/L (0.00-0.03); IMMATURE GRAN % 0.3 % (0.00-0.4); Lymphocyte (Absolute #) 2.14 x10^3/uL (1.0-4.6); Lymphocytes % 30.6 % (24.0-44.0); Mean Cell Volume 97.2 fL (78-100); Mean Corpuscular Hemoglobin 31.8 pg (26-32); Mean Corpuscular Hgb Concent. 32.7 g/dL (32-36); Mean Platelet Volume 8.4 fL (7.5-11.0); Monocyte (Absolute #) 0.52 x10^3/uL (0.0-1.3); Monocytes % 7.4 % (0.0-12.0); Neutrophil % 57.6 % (36.0-66.0); Platelet Count 203 x10^3/uL (150-450); Red Blood Count 4.34 x10^6/uL (4.1-5.6); Red Cell Distribution Width 12.2 % (11.5-14.0)
[2022-12-13 19:42] LABS: ALBUMIN 4.1 g/dL (3.5-5.0); ALKALINE PHOSPHATASE 79 U/L (38-126); ANION GAP 14.3 MEQ/L (5-15); BLOOD UREA NITROGEN 22 mg/dL (9-20); CHLORIDE 105 mmol/L (98-107); Calcium 9.3 mg/dL (8.4-10.2); Carbon Dioxide 23 mmol/L (22-30); Creatinine 1 0.92 mg/dL (0.66-1.25); EST GLOMERULAR FILTRATION RATE > 60.0 ML/MIN; Glucose 139 mg/dL (74-106); Potassium 4.6 mmol/L (3.5-5.1); SGOT/AST 24 U/L (17-59); SGPT/ALT 25 U/L (0-50); SODIUM 138 mmol/L (137-145); Total Protein 6.8 g/dL (6.3-8.2)
[2022-12-13 20:07] VITALS: O2SAT 96
[2022-12-13 20:09] VITALS: BP 118/77; PULSE 79; RESP 16
--- NOTE | 2022-12-13 22:16 | XRAY ---
CLINICAL HISTORY:Shortness of breath COMPARISON:None. TECHNIQUE:X-ray of the chest AP view. FINDINGS: There is significant rotation to the right. Tiny nodular opacities are seen in the right lower lung zone. Normal configuration of the mediastinum. The rose are normal in size and position. The cardiac size is normal. The bony thorax is unremarkable. The costophrenic and cardiophrenic angles are clear. IMPRESSION: Tiny nodular opacities in the right lower lung zone. Consider pulmonary nodules versus vessels en-face. Further evaluation is indicated. Electronically Signed by: Salvador Mckeon MD. (12/13/2022 21:14:34 CARE ASSOCIATE)
== END 2022-12-13 20:15 | disposition home or self-care (01) ==
LOC: ED 18:36
DX: R06.02 Shortness of breath (principal); R06.2 Wheezing; I10 Essential (primary) hypertension; E78.5 Hyperlipidemia, unspecified; E11.9 Type 2 diabetes mellitus without complications; Z79.84 Long term (current) use of oral hypoglycemic drugs; Z79.899 Other long term (current) drug therapy
CPT/HCPCS: 36415; 71045; 80053; 83880; 84484; 85025; 85379; 93005; 93041; 94760; 99284